=== PATIENT | female | born 1990 | race American Indian/Alaskan Native ===

== ENCOUNTER 2018-12-14 23:03 | Emergency (ER) | payer SELFPAY ==
[2018-12-14 23:10] VITALS: BP 124/91
== END 2018-12-14 23:50 | disposition left against medical advice (07) ==
LOC: ED 23:03
DX: K08.89 Other specified disorders of teeth and supporting structures (principal); Z53.21 Procedure and treatment not carried out due to patient leaving prior to being seen by health care provider